=== PATIENT | female | born 1975 | race Caucasian/White ===

== ENCOUNTER 2024-07-01 13:40 | Day surgery (SDC) | payer OTHER, SELFPAY ==
--- NOTE | 2024-07-01 13:47 | US_ITS ---
[address] [address] Patient Name: TIGRE BALDERRAMA MRN: [id number] date: 1975 Sex: F Assigned Patient Location: US Current Patient Location: Accession/Order Number: [id number] Exam Date: 07/01/2024 14:20 Report Date: 07/03/2024 14:54 At the request of: NORRIS CARRASCO Procedure: US biopsy thyroid EXAMINATION: US biopsy thyroid HISTORY: Left Thyroid Nodule COMPARISON: Ultrasound thyroid 05/31/2024 TECHNIQUE: After obtaining informed consent, ultrasound-guided fine needle aspiration was performed in the usual sterile manner. FINDINGS: IMAGING: Ultrasound. BIOPSY NEEDLE: 25-gauge; 3 separate passes LOCATION: Left lobe 2.3 cm heterogeneous TR 3 nodule. SPECIMEN TYPE: Cellular tissue. LOCAL ANESTHETIC: Buffered Xylocaine. COMPLICATIONS: None. LABORATORY: Prepared slide smears and washings for cell block evaluation. OTHER: Negative. PATHOLOGY: Pending. An addendum will be added when results are available. US/US biopsy thyroid IMPRESSION: 1. Uneventful ultrasound guided fine needle aspiration (FNA). 2. Pathology results are pending. Electronically authenticated by: LIZBETH MCKEON Date: 07/03/2024 14:54
[2024-07-01 14:00] VITALS: BP 120/84; PULSE 68; O2SAT 98
[2024-07-01] MEDS: LIDOCAINE HCL 10 ML, SODIUM BICARBONATE 1 MEQ INJ (14:35)
--- NOTE | 2024-07-01 15:16 | SUR.PREOP ---
06/20/24 Pt instructed on procedure, date, time, and prep.
== END 2024-07-01 15:00 | disposition home or self-care (01) ==
LOC: US 13:43
PROVIDERS: Radiology Diagnostic Radiology; Visit Provider Otolaryngology
DX: E04.1 Nontoxic single thyroid nodule (principal)
CPT/HCPCS: 10005; 88173